=== PATIENT | male | born 1980 | race Hispanic/Latino ===

== ENCOUNTER 2024-05-02 19:35 | Observation (INO) | payer BC, OTHER ==
[2024-05-02] MEDS ORDERED: ASPIRIN 81 MG CHEWABLE TABLET ONE (20:01)
[2024-05-02] MEDS ORDERED: FAMOTIDINE 20 MG/2 ML VIAL IV ONE (20:01)
[2024-05-02] MEDS ORDERED: NA CHLORIDE 0.9% 1,000 ML ONE (20:02)
[2024-05-02 20:05] LABS: Absolute Eosinophils 0.1 K/uL (0-0.5); Absolute Lymphocytes (CBC) 1.5 K/uL (0.7-4.9); Absolute Monocytes 0.6 K/uL (0.1-1.3); Absolute Neutrophil 4.3 K/uL (1.8-8.0); Basophils % 0.5 % (0-1.3); Eosinophils % 2.2 % (0-4.4); Hematocrit 41.8 % (39.6-49.0); Hemoglobin 14.1 g/dL (13.6-17.9); Lymphocytes % 23.2 % (15.3-44.8); MCH 30.6 pg (27.0-35.0); MCHC 33.7 g/dL (32.0-36.0); MCV 90.8 fL (80-100); MPV 7.2 fL (7.6-11.3); Monocytes % 8.9 % (3.3-12.3); Neutrophils % 65.2 % (41.7-73.7); Platelets 272 thou/uL (152-406); Red Cell Distribution Width 13.6 % (12.1-15.2)
[2024-05-02 20:13] LABS: PT Prothrombin Time 12.5 SECONDS (9.4-12.5); Protime INR 1.12
--- NOTE | 2024-05-02 20:19 | RAD REPORT ---
EXAM: CT brain without contrast HISTORY: DIZZINESS COMPARISON: None TECHNIQUE: Multiple contiguous axial images were obtained and a CT of the brain without contrast. Sag ittal and coronal reformats were performed. One or more of the following dose reduction techniques were used: Automated exposure control, adjust ment of the mA and/or kV according to patient size, and/or iterative reconstruction. FINDINGS: No evidence of hydrocephalus, intracranial hemorrhage, or extra-axial fluid collection. The brain is normal in morphology. No evidence of midline shift or areas of brain edema. The calvarium is intact. The visualized paranasal sinuses and mastoid air cells are essentially clear . IMPRESSION: No evidence of acute intracranial abnormality.
[2024-05-02 20:27] LABS: ALT/SGPT 60 U/L (16-61); AST/SGOT 22 U/L (15-37); Albumin/Globulin Ratio 1.2 (1.1-1.8); Alkaline Phosphatase 115 U/L (45-117); Anion Gap 9.8 mEq/L (5.0-15.0); BUN Blood Urea Nitrogen 16 mg/dL (7-18); Bicarbonate 25 mEq/L (21-32); Bilirubin Total 0.3 mg/dL (0.2-1.0); Globulin 3.3 g/dL (2.3-3.5); Glomerular Filtration Rate 87 ml/min (=/>90); Glucose Level 110 mg/dL (74-106); Magnesium 2.2 mg/dL (1.6-2.4); Potassium 3.8 mEq/L (3.5-5.1); Protein, Total 7.3 g/dL (6.4-8.2); Sodium Level 138 mEq/L (136-145); Troponin High Sensitivity 3.1 pg/mL (<58.9)
[2024-05-02 20:29] LABS: Bilirubin Direct < 0.2 mg/dL (0-0.2); Bilirubin Indirect, Calculated 0.1 mg/dL (0.2-0.8); NT PRO-BNP < 5 pg/mL (<125)
--- NOTE | 2024-05-02 20:35 | EDPHYS ---
Physician Documentation [facility] Name: Justo Doyle Jr Age: 43 yrs Sex: Male : 1980 Arrival Date: 05/02/2024 Time: 19:35 Bed 4 Private MD: ED Physician Ced Sal HPI: 05/02 19:42 This 43 yrs old Male presents to ER via Unassigned with complaints of left mauro shoulder, dizzy. 19:42 The patient or guardian complains of pain, that is acute. The complaints affect the mauro anterior aspect of left shoulder, left bicep, posterior aspect of left shoulder and left tricep. Context: The problem was sustained at home, resulted from unknown cause. Onset: The symptoms/episode began/occurred this morning, today. Treatment prior to arrival includes: no previous treatment. Modifying factors: The symptoms are alleviated by nothing. the symptoms are aggravated by nothing. The patient or guardian reports chest pain that is located primarily in the anterior chest wall, left. The patient presents with dizziness, sense of spinning. Historical: - Allergies: 19:46 No Known Allergies; me1 - Home Meds: 19:46 None [Active]; me1 - PMHx: 19:46 None; me1 - PSHx: 19:46 None; me1 - Immunization history:: Adult Immunizations up to date. - Infectious Disease History:: Denies. - Family history:: not pertinent. - Social history:: Smoking status: Patient denies any tobacco usage or history of. ROS: 19:42 Constitutional: Negative for fever, chills, and weight loss, Eyes: Negative for injury, mauro pain, redness, and discharge, ENT: Negative for injury, pain, and discharge, Neck: Negative for injury, pain, and swelling, Respiratory: Negative for shortness of breath, cough, wheezing, and pleuritic chest pain, Abdomen/GI: Negative for abdominal pain, nausea, vomiting, diarrhea, and constipation, Back: Negative for injury and pain, : Negative for injury, bleeding, discharge, and swelling, MS/Extremity: Negative for injury and deformity, Skin: Negative for injury, rash, and discoloration, Psych: Negative for depression, anxiety, suicide ideation, homicidal ideation, and hallucinations, Allergy/Immunology: Negative for hives, rash, and allergies, Endocrine: Negative for neck swelling, polydipsia, polyuria, polyphagia, and marked weight changes, Hematologic/Lymphatic: Negative for swollen nodes, abnormal bleeding, and unusual bruising, 19:42 Cardiovascular: Positive for chest pain, 19:42 MS/extremity: Positive for pain, of the left arm, Exam: 19:42 Constitutional: This is a well developed, well nourished patient who is awake, alert, mauro and in no acute distress. Head/Face: Normocephalic, atraumatic. Eyes: Pupils equal round and reactive to light, extra-ocular motions intact. Lids and lashes normal. Conjunctiva and sclera are non-icteric and not injected. Cornea within normal limits. Periorbital areas with no swelling, redness, or edema. ENT: Nares patent. No nasal discharge, no septal abnormalities noted. Tympanic membranes are normal and external auditory canals are clear. Oropharynx with no redness, swelling, or masses, exudates, or evidence of obstruction, uvula midline. Mucous membranes moist. Neck: Trachea midline, no thyromegaly or masses palpated, and no cervical lymphadenopathy. Supple, full range of motion without nuchal rigidity, or vertebral point tenderness. No Meningismus. Chest/axilla: Normal chest wall appearance and motion. Nontender with no deformity. No lesions are appreciated. Cardiovascular: Regular rate and rhythm with a normal S1 and S2. No gallops, murmurs, or rubs. Normal PMI, no JVD. No pulse deficits. Respiratory: Lungs have equal breath sounds bilaterally, clear to auscultation and percussion. No rales, rhonchi or wheezes noted. No increased work of breathing, no retractions or nasal flaring. Abdomen/GI: Soft, non-tender, with normal bowel sounds. No distension or tympany. No guarding or rebound. No evidence of tenderness throughout. Back: No spinal tenderness. No costovertebral tenderness. Full range of motion. Skin: Warm, dry with normal turgor. Normal color with no rashes, no lesions, and no evidence of cellulitis. MS/ Extremity: Pulses equal, no cyanosis. Neurovascular intact. Full, normal range of motion. Neuro: Awake and alert, GCS 15, oriented to person, place, time, and situation. Cranial nerves II-XII grossly intact. Motor strength 5/5 in all extremities. Sensory grossly intact. Cerebellar exam normal. Normal gait. Psych: Awake, alert, with orientation to person, place and time. Behavior, mood, and affect are within normal limits. 19:42 ECG was reviewed by the Attending Physician. 20:09 ECG was reviewed by the Attending Physician. [facility] Vital Signs: 19:44 BP 159 / 100; Pulse 71; Resp 17; Temp 98.8; Pulse Ox 100% ; Weight 90.72 kg; Height 5 me1 ft. 5 in. ; 20:46 BP 148 / 108; Pulse 71; Resp 16; Pulse Ox 97% ; jj7 21:31 BP 140 / 111; Pulse 80; Resp 19; Pulse Ox 98% ; jj7 22:25 BP 129 / 101; Pulse 80; Resp 16; Pulse Ox 98% ; jj7 23:22 BP 132 / 92; Pulse 62; Resp 18; Temp 98.2; Pulse Ox 99% ; Pain 0/10; jj7 19:44 Body Mass Index 33.28 (90.72 kg, 165.1 cm) dc1 23:22 Pain Scale: Adult jj7 MDM: 19:37 Medical Screening Exam initiated [facility] 19:40 Medical Screening Exam initiated [facility] 19:45 Differential diagnosis: contusion, tendonitis, abnormal EKG, acute myocardial mauro infarction, acute pericarditis, anxiety, coronary artery disease chest wall pain, Cholelithiasis costochondritis, esophagitis, gastritis, gastroesophageal reflux disease (GERD), herpes zoster, pancreatitis, peptic ulcer disease, pericarditis, pleurisy, stable angina, thoracic aortic disection, unstable angina. HEART Score: ECG: Non specific repolarization disturbance / LBTB / PM (1). Differential diagnosis: cardiac arrhythmia, CVA, generalized weakness, idiopathic dizziness, near-syncope, sepsis, syncope, TIA, vertigo. The patient was given aspirin in the Emergency Department. TARA Risk Score: TOTAL SCORE = 0. Data reviewed: vital signs, nurses notes, lab test result(s), EKG, radiologic studies, CT scan, plain films. Consideration of Admission/Observation Patient was admitted/placed on observation. Escalation of care including admission/observation considered. I considered the following discharge prescriptions or medication management in the emergency department Antibiotics: At this time antibiotics are not recommended. Independent interpretation of the following test(s) in the Emergency Department EKG: See my EKG interpretation above. Test considered but Not performed: Ultrasound no 2 d echo. 05/02 19:42 Order name: Basic Metabolic Panel; Complete Time: 20:30 [facility] 05/02 19:42 Order name: CBC with Diff; Complete Time: 20:16 [facility] 05/02 19:42 Order name: LFT's; Complete Time: 20:30 [facility] 05/02 19:42 Order name: Magnesium; Complete Time: 20:30 [facility] 05/02 19:42 Order name: NT PRO-BNP; Complete Time: 20:30 [facility] 05/02 19:42 Order name: PT-INR; Complete Time: 20:16 [facility] 05/02 19:42 Order name: Troponin HS; Complete Time: 20:30 [facility] 05/02 20:36 Order name: Lipid Profile [facility] 05/02 21:17 Order name: LDL, Direct [facility] 05/02 21:41 Order name: Basic Metabolic Panel [facility] 05/02 21:41 Order name: CBC with Automated Diff [facility] 05/02 21:41 Order name: Creatine Phosphokinase [facility] 05/02 21:41 Order name: Lactate w/ 2H reflex if indic. [facility] 05/02 21:41 Order name: Magnesium [facility] 05/02 21:41 Order name: NT PRO-BNP [facility] 05/02 21:41 Order name: Phosphorus [facility] 05/02 21:41 Order name: Thyroid Stimulating Hormone [facility] 05/02 21:41 Order name: Urinalysis w/ reflexes [facility] 05/02 21:41 Order name: Troponin High Sensitivity [facility] 05/02 21:41 Order name: Troponin High Sensitivity [facility] 05/02 21:41 Order name: Troponin High Sensitivity [facility] 05/02 21:41 Order name: Troponin High Sensitivity [facility] 05/02 19:42 Order name: XRAY Chest (1 view); Complete Time: 21:25 [facility] 05/02 19:42 Order name: CT Head Brain wo Cont; Complete Time: 20:30 [facility] 05/02 21:42 Order name: Echo with Doppler [facility] 05/02 21:41 Order name: CONS Physician Consult [facility] 05/02 19:42 Order name: Cardiac monitoring; Complete Time: 20:06 [facility] 05/02 19:42 Order name: EKG - Nurse/Tech; Complete Time: 20:06 [facility] 05/02 19:42 Order name: IV Saline Lock; Complete Time: 20: [facility] 05/02 19:42 Order name: Labs collected and sent; Complete Time: 20: [facility] 05/02 19:42 Order name: O2 Per Protocol; Complete Time: : [facility] 05/02 19:42 Order name: O2 Sat Monitoring; Complete Time: 20: [facility] EC: Rate is 81 beats/min. Rhythm is regular. QRS [place] is Normal. [place] interval is normal. QRS mauro interval is normal. QT interval is normal. No Q waves. T waves are Normal. No ST changes noted. Clinical impression: NSR w/ Non-specific ST/T Changes and No evidence of ischemia. Interpreted by me. Reviewed by me. Administered Medications: 20: Drug: Aspirin PO Chewable Tablet 324 mg PO once; 81 mg tablets x 4 Route: PO; jj7 21:33 Follow up: Response: No adverse reaction jj7 20:06 Drug: NS 0.9% IV 1000 ml IV at 1000 ml once; to be given as a bolus over 60 minutes jj7 Route: IV; Rate: 1000 ml; Site: right antecubital; 21:33 Follow up: IV Status: Completed infusion jj7 20:06 Drug: Famotidine IVP 20 mg IVP once; dilute with 10 mL 0.9% NaCl; give over 2 minutes jj7 Route: IVP; Site: right antecubital; 21:33 Follow up: Response: Marked relief of symptoms jj7 21:07 Drug: Lisinopril PO 20 mg PO once Route: PO; jj7 22:28 Follow up: Response: Blood pressure is lowered jj7 21:07 Drug: Metoprolol PO 25 mg PO once Route: PO; jj7 22:27 Follow up: Response: Blood pressure is lowered jj7 Disposition Summary: 05/02/24 20:35 Hospitalization Ordered Notes: Hospitalization Status: Observation mauro Provider: Ca Houston cha Condition: Stable mauro Problem: new mauro Symptoms: have improved mauro Bed/Room Type: Standard mauro Location: Intensive Care Unit(05/02/24 22:09) km Room Assignment: 6-(05/02/24 22:09) km Diagnosis - Chest pain, unspecified mauro - Dizziness and giddiness mauro - Essential (primary) hypertension mauro Forms: - Medication Reconciliation Form mauro - SBAR form mauro - Leadership Thank You Letter [facility] Signatures: Dispatcher [employer] EDCed Ramires MD MD cha Johnson, Juwairiyah RN RN jj7 Deya Small RN RN me1 [facility] Corrections: (The following items were deleted from the chart) 19:43 19:43 Head Brain Wo Cont+CT.RAD.BRZ ordered. EDMS EDMS 20:37 20:37 LIPID PROFILE+C.LAB.BRZ ordered. EDMS EDMS 22:09 20:35 Telemetry/MedSurg (observation) [facility] 22:09 20:35 [facility]
--- NOTE | 2024-05-02 20:35 | ER ---
Nurse's Notes [facility] Name: Justo Doyle Jr Age: 43 yrs Sex: Male : 1980 Arrival Date: 05/02/2024 Time: 19:35 Bed 4 Private MD: Diagnosis: Chest pain, unspecified;Dizziness and giddiness;Essential (primary) hypertension Presentation: 05/02 19:44 Chief complaint: Patient states: left sided shoulder pain that started about lunch time me1 and then this evening sudden onset of dizziness, ringing in both ears and then numbness to BUE. Coronavirus screen: Vaccine status: Patient reports being unvaccinated. Ebola Screen: No symptoms or risks identified at this time. Initial Sepsis Screen: Does the patient meet any 2 criteria? No. Patient's initial sepsis screen is negative. Risk Assessment: Do you want to hurt yourself or someone else? Patient reports no desire to harm self or others. Onset of symptoms was May 02, 2024 at 12:00. 19:44 Method Of Arrival: Wheelchair me1 19:44 Acuity: ADELINA 3 me1 Historical: - Allergies: 19:46 No Known Allergies; me1 - Home Meds: 19:46 None [Active]; me1 - PMHx: 19:46 None; me1 - PSHx: 19:46 None; me1 - Immunization history:: Adult Immunizations up to date. - Infectious Disease History:: Denies. - Family history:: not pertinent. - Social history:: Smoking status: Patient denies any tobacco usage or history of. Screenin:50 [facility] ED Fall Risk Assessment (Adult) History of falling in the last 3 months, jj7 including since admission No falls in past 3 months (0 pts) Confusion or Disorientation No (0 pts) Intoxicated or Sedated No (0 pts) Impaired Gait No (0 pts) Mobility Assist Device Used No (0 pt) Altered Elimination No (0 pt) Score/Fall Risk Level 0 - 2 = Low Risk Oriented to surroundings, Maintained a safe environment, Educated pt \T\ family on fall prevention, incl call for assistance when getting out of bed, Assessed \T\ reinforced patient's understanding of fall precautions. Abuse screen: Denies threats or abuse. Nutritional screening: No deficits noted. Tuberculosis screening: No symptoms or risk factors identified. Assessment: 19:50 General: Appears in no apparent distress. uncomfortable. Pain: Complains of pain in jj7 posterior aspect of left shoulder. Neuro: Reports dizziness. Vital Signs: 19:44 BP 159 / 100; Pulse 71; Resp 17; Temp 98.8; Pulse Ox 100% ; Weight 90.72 kg; Height 5 me1 ft. 5 in. ; 20:46 BP 148 / 108; Pulse 71; Resp 16; Pulse Ox 97% ; jj7 21:31 BP 140 / 111; Pulse 80; Resp 19; Pulse Ox 98% ; jj7 22:25 BP 129 / 101; Pulse 80; Resp 16; Pulse Ox 98% ; jj7 23:22 BP 132 / 92; Pulse 62; Resp 18; Temp 98.2; Pulse Ox 99% ; Pain 0/10; jj7 19:44 Body Mass Index 33.28 (90.72 kg, 165.1 cm) me1 23:22 Pain Scale: Adult [facility] ED Course: 19:36 Patient arrived in ED. mauro 19:37 Ced Sal MD is Attending Physician. [facility] 19:46 Triage completed. me1 19:46 Arm band placed on Patient placed in an exam room. me1 19:50 Patient has correct armband on for positive identification. Bed in low position. Call j7 light in reach. Side rails up X 1. Adult w/ patient. Provided Education on: USE OF CALL [place]. Door closed. Warm blanket given. 19:55 Inserted saline lock: 20 gauge in right antecubital area, using aseptic technique. jj7 Blood collected. Flushed with 10 mL NS. 20:06 Basic Metabolic Panel Sent. jj7 20:06 CBC with Diff Sent. jj7 20:06 LFT's Sent. jj7 20:07 Magnesium Sent. jj7 20:07 NT PRO-BNP Sent. jj7 20:07 PT-INR Sent. jj7 20:07 Troponin HS Sent. jj7 20:16 CT Head Brain wo Cont In Process Unspecified. EDMS 20:34 Ca Houston MD is Hospitalizing Provider. mauro 20:36 XRAY Chest (1 view) In Process Unspecified. EDMS 20:50 Bebe Cali RN is Primary Nurse. jj7 21:07 Lipid Profile Sent. jj7 22:34 Patient admitted, IV remains in place. j7 22:34 No provider procedures requiring assistance completed. jj7 Administered Medications: 20:06 Drug: Aspirin PO Chewable Tablet 324 mg PO once; 81 mg tablets x 4 Route: PO; jj7 21:33 Follow up: Response: No adverse reaction 7 20:06 Drug: NS 0.9% IV 1000 ml IV at 1000 ml once; to be given as a bolus over 60 minutes jj7 Route: IV; Rate: 1000 ml; Site: right antecubital; 21:33 Follow up: IV Status: Completed infusion 7 20:06 Drug: Famotidine IVP 20 mg IVP once; dilute with 10 mL 0.9% NaCl; give over 2 minutes j7 Route: IVP; Site: right antecubital; 21:33 Follow up: Response: Marked relief of symptoms j7 21:07 Drug: Lisinopril PO 20 mg PO once Route: PO; j7 22:28 Follow up: Response: Blood pressure is lowered jj7 21:07 Drug: Metoprolol PO 25 mg PO once Route: PO; jj7 22:27 Follow up: Response: Blood pressure is lowered jj7 Medication: 19:50 VIS not applicable for this client. 7 Outcome: 20:35 Decision to Hospitalize by Provider. mauro 22:34 Admitted to ICU accompanied by nurse, via wheelchair, room 6. OVERFLOW, Report called jj7 to EUGENIA MONZON 22:34 Condition: improved 23:23 Patient left the ED. jj7 Signatures: Dispatcher [employer] Ced Baer MD MD cha Johnson, Juwairiyah RN RN jj7 Deya Small RN RN me1
--- NOTE | 2024-05-02 20:46 | RAD REPORT ---
EXAMINATION: ONE VIEW CHEST XR CLINICAL INDICATION: left shoulder pain;Chest pain TECHNIQUE: Frontal chest projection is submitted. Examination is limited by patient positioning and t echnique. COMPARISON: No prior exam. FINDINGS: Mild nonspecific interstitial prominence. Interstitial pulmonary edema or underlying viral infection/ reactive airway disease or possible. The heart is normal in size. No displaced fractures identified.
[2024-05-02] MEDS ORDERED: METOPROLOL TAR 25 MG TAB ONE (20:53)
[2024-05-02] MEDS ORDERED: lisinopriL 20 MG TAB ONE (20:53)
[2024-05-02 21:14] LABS: HDL Cholesterol 26 mg/dL (40-60)
[2024-05-02] MEDS ORDERED: ONDANSETRON 4 MG (ODT) TAB PO PRN (21:35)
[2024-05-02] MEDS ORDERED: ACETAMINOPHEN 325 MG TABLET PO PRN (21:35)
[2024-05-02 21:37] LABS: LDL, Direct 87 mg/dL (100-129)
--- NOTE | 2024-05-02 21:47 | P.HP ---
Certification for Inpatient Patient admitted to: Observation With expected LOS: <2 Midnights Practitioner: I am a practitioner with admitting privileges, knowledge of patient current condition, hospital course, and medical plan of care. Services: Services provided to patient in accordance with Admission requirements found in Title 42 Section 412.3 of the Code of Federal Regulations Patient History Date of Service: 05/02/24 Reason for admission: chest pain, dizziness History of Present Illness: 43-year-old man with a past medical history significant for GERD presented to the emergency department complaining of chest pain/left shoulder pain and dizziness x 1 day. The patient describes his chest pain as intermiitent, left- sided radiating to the left shoulder, and of a pressure-like quality. Also, the patient states he became dizzy earlier today, and this has not quite resolved yet. Patient has not attempted anything to help improve his chest pain or dizziness. He states nothing worsens his symptoms. The patient denies fever and shortness of breath. Allergies No Known Drug Allergies Allergy (Unverified 03/16/15 14:26) Unknown Home medications list reviewed: Yes (none) - Past Medical/Surgical History -: GERD - Family History Family History: Reviewed- Non-Contributory - Social History Smoking Status: Former smoker (quit 2004) Alcohol use: No Review of Systems Cardiovascular: Chest Pain, Light Headedness Musculoskeletal: Shoulder Pain (left shoulder) Physical Examination - Vital Signs Temperature: 98.8 F Blood Pressure: 140/90 Pulse: 64 Respirations: 18 Pulse Ox (%): 100 - Physical Exam General: Alert, Oriented x3 HEENT: Atraumatic, Normocephalic Neck: JVD not distended Respiratory: Clear to auscultation bilaterally Cardiovascular: Regular rate/rhythm, No gallops, No rubs, No murmurs Gastrointestinal: Normal bowel sounds, Non-distended Musculoskeletal: No swelling, No erythema, No tenderness, No warmth Neurological: Normal strength at 5/5 x4 extr, Sensation intact - Studies Laboratory Data (last 24 hrs) 05/02/24 05/02/24 05/02/24 19:55 19:55 19:55 WBC 6.60 Hgb 14.1 Hct 41.8 Plt Count 272 PT 12.5 INR 1.12 Sodium Potassium BUN Creatinine Glucose Magnesium Total Bilirubin AST ALT Alkaline Phosphatase Triglycerides 580 H Cholesterol 172 LDL Cholesterol Direct 87 L HDL Cholesterol 26 L Cholesterol/HDL Ratio 6.62 05/02/24 19:55 WBC Hgb Hct Plt Count PT INR Sodium 138 Potassium 3.8 BUN 16 Creatinine 1.08 Glucose 110 H Magnesium 2.2 Total Bilirubin 0.3 AST 22 ALT 60 Alkaline Phosphatase 115 Triglycerides Cholesterol LDL Cholesterol Direct HDL Cholesterol Cholesterol/HDL Ratio Assessment and Plan - Problems (Diagnosis) (1) Chest pain Current Visit: Yes Status: Acute - Plan Chest pain: Admit to observation Telemetry ordered Cardiology consult Cardiogram ordered BMP and other labs ordered to trend Continue with aspirin, and statin - Advance Directives Does patient have a Living Will: No Does patient have a Durable POA for Healthcare: No - Code Status/Comfort Care Code Status Assessed: Yes Code Status: Full Code
[2024-05-03 00:05] VITALS: BMI 33.1
[2024-05-03] MEDS: ROSUVASTATIN 10 MG TAB PO SCH (00:11)
[2024-05-03 01:18] LABS: Specific Gravity 1.012 (1.005-1.030); Urine Bilirubin NEGATIVE (Negative); Urine Blood Negative (Negative); Urine Clarity Clear (Clear); Urine Color Colorless (Yellow); Urine Glucose NEGATIVE (Negative); Urine Ketones NEGATIVE (Negative); Urine Microscopic Reflex YN NO UMIC; Urine Nitrite NEGATIVE (Negative); Urine Protein NEGATIVE (Negative); Urine Urobilinogen Normal (Normal)
[2024-05-03 05:35] LABS: Absolute Eosinophils 0.1 K/uL (0-0.5); Absolute Lymphocytes (CBC) 1.7 K/uL (0.7-4.9); Absolute Monocytes 0.6 K/uL (0.1-1.3); Absolute Neutrophil 3.4 K/uL (1.8-8.0); Basophils % 0.8 % (0-1.3); Eosinophils % 2.5 % (0-4.4); Hematocrit 41.2 % (39.6-49.0); Hemoglobin 13.5 g/dL (13.6-17.9); Lymphocytes % 28.7 % (15.3-44.8); MCHC 32.9 g/dL (32.0-36.0); MCV 91.3 fL (80-100); MPV 7.2 fL (7.6-11.3); Monocytes % 10.6 % (3.3-12.3); Neutrophils % 57.4 % (41.7-73.7); Platelets 251 thou/uL (152-406); RBC Red Blood Cell Count 4.51 M/uL (4.33-5.43); Red Cell Distribution Width 13.9 % (12.1-15.2)
[2024-05-03 05:58] LABS: Anion Gap 5.8 mEq/L (5.0-15.0); Magnesium 2.2 mg/dL (1.6-2.4); Phosphorus 3.2 mg/dL (2.5-4.9); Potassium 3.8 mEq/L (3.5-5.1); Thyroid Stimulating Hormone 1.34 uIU/mL (0.358-3.740); Troponin High Sensitivity 4.9 pg/mL (<58.9)
[2024-05-03] MEDS: INFLUENZA VACCINE (for 6+ mo) 0.5 ML DOSE IMVAC ONE (08:00)
[2024-05-03 08:13] VITALS: BP 131/85; TEMP 97.7; O2SAT 100
[2024-05-03] MEDS: ENOXAPARIN 40 MG/0.4 ML SQ SCH (08:29)
--- NOTE | 2024-05-03 10:23 | P.DS ---
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 [facility] does not smoke has some mild intermittent tinnitus triglyceride is also significantly elevated does not take any medication At time of discharge is alert oriented responsive cooperative night scale is normal have any cranial nerve dysfunction or weakness of his extremities patient is able to ambulate scan of the head is negative x-ray negative labs unremarkable troponins negative patient's blood pressure was elevated on admission and normal throughout the course of his stay glyceride was over 500 patient was started on atorvastatin to follow-up with primary care physician advised him to see an ENT physician discharge she was started on atorvastatin and hydrochlorothiazide hypertension Vital Signs/Physical Exam: Temp Pulse Resp BP Pulse Ox 97.7 F 98 H 11 L 131/85 100 05/03/24 08:00 05/03/24 08:00 05/03/24 08:00 05/03/24 08:00 05/03/24 08:00 Laboratory Data at Discharge: WBC 6.00 thou/uL (4.3-10.9) 05/03/24 05:18 Hgb 13.5 g/dL (13.6-17.9) L 05/03/24 05:18 Hct 41.2 % (39.6-49.0) 05/03/24 05:18 Plt Count 251 thou/uL (152-406) 05/03/24 05:18 PT 12.5 SECONDS (9.4-12.5) 05/02/24 19:55 INR 1.12 05/02/24 19:55 Sodium 139 mEq/L (136-145) 05/03/24 05:18 Potassium 3.8 mEq/L (3.5-5.1) 05/03/24 05:18 BUN 13 mg/dL (7-18) 05/03/24 05:18 Creatinine 0.97 mg/dL (0.70-1.30) 05/03/24 05:18 Glucose 99 mg/dL (74-106) 05/03/24 05:18 Phosphorus 3.2 mg/dL (2.5-4.9) 05/03/24 05:18 Magnesium 2.2 mg/dL (1.6-2.4) 05/03/24 05:18 Total Bilirubin 0.3 mg/dL (0.2-1.0) 05/02/24 19:55 AST 22 U/L (15-37) 05/02/24 19:55 ALT 60 U/L (16-61) 05/02/24 19:55 Alkaline Phosphatase 115 U/L (45-117) 05/02/24 19:55 Triglycerides 359 mg/dL (<150) H 05/03/24 09:44 Cholesterol 172 mg/dL (<200) 05/02/24 19:55 LDL Cholesterol Direct 87 mg/dL (100-129) L 05/02/24 19:55 HDL Cholesterol 26 mg/dL (40-60) L 05/02/24 19:55 Cholesterol/HDL Ratio 6.62 05/02/24 19:55 Home Medications: Atorvastatin Calcium 40 mg PO DAILY 30 Days #20 tab 05/03/24 Triamterene/Hydrochlorothiazid [Triamterene-Hctz 37.5-25 mg Cp] 1 each PO DAILY 30 Days #30 tab 05/03/24 New Medications: Atorvastatin Calcium 40 mg PO DAILY 30 Days #20 tab Triamterene/Hydrochlorothiazid [Triamterene-Hctz 37.5-25 mg Cp] 1 each PO DAILY 30 Days #30 tab Physician Discharge Instructions: to F/u with ENT for tinnitus and primary care for hyperlipidemia. low fat diet/ Medicated sent to [facility] for elevated cholesterol Diet: Regular Activity: Ad marissa Followup: Hardy Simon, PAC [Primary Care Provider] -
--- NOTE | 2024-05-04 12:16 | EKG ---
Test Date: 2024-05-02 Test Time: 19:51:51 Commercial Announcer: IDAZ MEASUREMENT RESULTS: Intervals: Rate: 81 NV: 140 QRSD: 88 QT: 368 QTc: 427 [place]: P: 46 NV: 140 QRS: 19 T: 29 INTERPRETIVE STATEMENTS: Normal sinus rhythm Normal ECG No previous ECG available for comparison Electronically Signed On 05-04-24 12:13:35 FIELD [employer] by Kulwinder Ng
== END 2024-05-03 10:30 | disposition home or self-care (01) ==
LOC: ER 19:35 → ERHOLD 21:35 → 3RD-ICU 22:56
PROVIDERS: ADMIT Hospitalist; ATTEND Internal Medicine Sleep Medicine
DX: R07.9 Chest pain, unspecified (principal); R42 Dizziness and giddiness; K21.9 Gastro-esophageal reflux disease without esophagitis; E78.5 Hyperlipidemia, unspecified; H93.19 Tinnitus, unspecified ear; I10 Essential (primary) hypertension
CPT/HCPCS: 96361; 93005; 85025 ×2; 80048 ×2; 36415 ×2; 83721; 83735 ×2; 82550; 84478; 84100; 85610; 80061; 80076; 83605; 84443; 81003; 84484 ×2; 83880 ×2; 70450; 71045; 96374; 99285; J1650; J7030; G0378 ×4

== ENCOUNTER 2024-11-17 11:23 | Emergency (ER) | payer OTHER ==
--- OUTSIDE RECORDS SUMMARY | 2024-11-17 11:26 | XMS REPORT | Continuity of Care Document ---
Author Name Unknown Address [address] [place] [address] [address] [place] [address] Organization [facility] [place] Address [address] [facility] [place] [address] Care Team Providers Care Tractor Expert Name Role Phone DONAL ACEVEDO Attending Clinician BRII Condon Attending Clinician Unavailable EUGENIO JACK Attending Clinician Unavailable Provider, [facility] Attending Clinician Un available Moe Romero MD Attending Clinician [phone] MOE ROMERO Attending Clinician Unavailable Doctor Unassigned, [place] Attending Clinician [facility], [facility] Fam Pob I Attending Clinician Unavailab Celena Lazcano PA-C Attending Clinician [phone] CELENA MURRY Attending Clinician Unavailable Ada Mullen Attending Clinician [phone] ADA LI Attending Clinician Unavailable Payers Payer Name Policy Type Policy Number Effective Date Expirati on Date Source [employer] 2 [id number] 2020 00:00:00 Problems Condition Name Condition Details Condition Category Status Onset Date Resolution Date Last Treatment Date Treating Clinician Comments Source No known active problems No known active problems Disease [facility] Allergies, Adverse Reactions, Alerts Allergy Name Allergy Type Status Severity Reaction(s) Onset Date Inactive Date Treating Clinician Comments Source NO KNOWN ALLERGIE S Drug Class Active [facility] Social History Social Habit Start Date Stop Date Quantity Comments Source Exposure to SARS-CoV-2 (event) Not sure [facility] Tobacco use and exposure 2021-01-10 00:00:00 2021-01-10 00:00:00 Never used [facility] Sex Assigned At 1980 00:00[birth year]00 1980 00:00:00 [facility] Smoking Status Start Date Stop Date Source Never smoker [facility] Medications Ordered Medication Name Filled Medication Name Start Date Stop Date Current Medication? Ordering Clinician Indication Dosage Frequency Signature (SIG) Comments Components Source acetaminoph en-codeine 300-30 mg tablet 01-10 00:00: 00 Yes [id number] 1/2 - 1 tab Every 4hrs as needed for pain or cough requiring narcotic Indication s: acute pain [facility] methylPREDN ISolone (MEDROL, REI,) 4 mg tablets 2019-07 00:00: 00 Yes [id number] Take by mouth SEE-INSTRU CTIONS. follow package directions [facility] azithromyci n (ZITHROMAX Z-REI) 250 mg tablet 2019-07 00:00: 00 Yes [id number] 250mg Take 1 tablet by mouth daily. Take 500 mg day 1, then 250 mg days 2 to 5. [facility] Vital Signs Vital Name Observation Time Observation Value Comments S ource Systolic blood pressure 2021-01-10 17:04:00 135 mm[Hg[facility] Diastolic blood pressure 2021-01-10 17:04:00 88 mm[Hg] [facility] Heart rate 2021-01-10 17:03:00 89 /min [facility] Body temperature 2021-01-10 17:03:00 37.11 Ema [facility] Respiratory rate 2021-01-10 17:03:00 17 /min [facility] Body height 2021-01-10 17:03:00 165.1 cm [facility] Body weight 2021-01-10 17:03:00 87.907 kg [facility] BMI 2021-01-10 17:03:00 32.25 kg/m2 [facility] Oxygen saturation in Arterial blood by Pulse oximetry 2021-01-10 17:03:00 98 /min [facility] Systolic blood pressure 2020-05-12 00:21:00 134 mm[Hg] [facility] Diastolic blood pressure 2020-05-12 00:21:00 88 mm[Hg] [facility] Heart rate 2020-05-12 00:20:00 77 /min [facility] Body temperature 2020-05-12 00:20:00 36.39 Ema [facility] Respiratory rate 2020-05-12 00:20:00 17 /min [facility] Body height 2020-05-12 00:20:00 165.1 cm [facility] Body weight 2020-05-12 00:20:00 86.183 kg [facility] BMI 2020-05-12 00:20:00 31.62 kg/m2 [facility] Oxygen saturation in Arterial blood by Pulse oximetry 2020-05-12 00:20:00 97 /min [facility] Procedures Procedure Date / Time Performed Performing Clinicia n Source POCT GRP A STREP (MOLECULAR) 2021-01-10 17:26:[address] [facility] PATIENT FINANCIAL POLICY 2021-01-10 16:28:20 Doctor Unassigned, [place] [facility] POCT FLU A AND B (MOLECULAR) 2020-05-12 00:35:00 Robert Powell [facility] POCT GRP A STREP (MOLECULAR) 2020-05-11 00:00:00 Robert Powell [facility] Encounters Start Date/Time End Date/Time Encounter Type Admission Type Attending [facility] Care Department Encounter ID Source 2021-02-06 00:00:00 2021-02-06 00:00:00 Outpatient [facility] [id number] [facility] 2021-01-26 13:00:00 2021-01-26 13:00:00 Outpatient BRII PAGE [id number] [facility] 2021-01-18 00:00:00 2021-01-18 00:00:00 Outpatient DONAL ACEVEDO [id number] [facility] 2021-01-13 08:30:00 2021-01-13 08:30:00 Outpatient EUGENIO JACK [id number] [facility] 2021-01-10 11:28:50 2021-01-10 11:48:50 Urgent Care Provider, Juan Pablo Urgent Jaren RomeroMoe Rosa [facility] [address] [id number] [facility] 2021-01-10 11:20:00 2021-01-10 11:20:00 Outpatient Fermin ROMERO [facility] [id number] [facility] 2021-01-10 00:00:00 2021-01-10 00:00:00 Orders Only Doctor Unassigned, [place] [facility] [id number] [facility] 2021-01-05 16:29:47 2021-01-05 16:49:47 Laboratory Only Lab, Adc Fam Pob Neo Murry [facility] [id number] [facility] 2021-01-05 16:00:00 2021-01-05 16:00:00 Outpatient Fermin CARLOS CELENA [facility] [id number] [facility] 2020-05-11 18:03:27 2020-05-11 18:23:27 Urgent Care Provider, Juan Pablo [facility] Care Matti Lissica [facility] [id number] [facility] 2020-05-11 18:20:00 2020-05-11 18:20:00 Outpatient MATTI C[facility]EDESSSICA [facility] [id number] [facility] Results Test Description Test Time Test Comments Results Result Co mments Source [facility]2020-05-12 00:45:00* Test Item Value Reference Range Interpretation Comme nts POCT INFLUENZA A (test code = 3840) negative Negative - Negative POCT INFLUENZA B (test code = 3841) negative Negative - Negative Lab Interpretation (test cod e = [id number]) Normal [facility]2020-05-12 00:40:00* Test Item Value Reference Range Interpretation Comme nts POCT GP A STREP (test code = 09807-6) negative Negative - Negative [facility]
--- NOTE | 2024-11-17 11:40 | ER ---
Nurse's Notes [facility] Name: Justo Doyle Jr Age: 44 yrs Sex: Male : 1980 Arrival Date: 11/17/2024 Time: 11:23 Bed IW1 Private MD: Diagnosis: Chlorine gas exposure, chemical irritants Presentation: 11/17 11:32 Chief complaint: Patient states: Exposed to chlorine gas at work 2-3 hours ago today. ss Pt reports he ran as soon as he smelled the chemical, but has had some irritation to the back of his throat and mild cough. Coronavirus screen: Client denies travel out of the [place] in the last 14 days. Ebola Screen: Patient denies exposure to infectious person. Patient denies travel to an Ebola-affected area in the 21 days before illness onset. Initial Sepsis Screen: Does the patient meet any 2 criteria? No. Patient's initial sepsis screen is negative. Does the patient have a suspected source of infection? No. Patient's initial sepsis screen is negative. Risk Assessment: Do you want to hurt yourself or someone else? Patient reports no desire to harm self or others. Onset of symptoms was November 17, 2024. 11:32 Acuity: ADELINA 4 ss 11:32 Method Of Arrival: Ambulatory Historical: - Allergies: 11:34 No Known Allergies; ss - Home Meds: 11:34 None [Active]; ss - PMHx: 11:34 None; ss - PSHx: 11:34 None; ss - Immunization history:: Adult Immunizations up to date. - Infectious Disease History:: Denies. - Social history:: Smoking status: Patient denies any tobacco usage or history of. Screenin:45 Abuse screen: Denies threats or abuse. Denies injuries from another. Nutritional ss screening: No deficits noted. Tuberculosis screening: Never had TB. Assessment: 11:45 General: Appears in no apparent distress. comfortable, Behavior is calm, cooperative, ss Denies fever, feeling ill, fatigue, chills. Neuro: Level of Consciousness is awake, alert, obeys commands, Oriented to person, place, time, situation. Cardiovascular: Pulses are palpable in right radial artery and left radial artery. Respiratory: Reports cough that is non-productive, Airway is patent Trachea midline Respiratory effort is even, unlabored, Respiratory pattern is regular, symmetrical, Breath sounds are clear bilaterally. Denies shortness of breath. Derm: Skin is intact, is healthy with good turgor, Skin is dry, Skin is pink, warm \T\ dry. normal. Musculoskeletal: Circulation, motion, and sensation intact. Range of motion: intact in all extremities, Swelling absent. Vital Signs: 11:32 BP 156 / 107; Pulse 76; Resp 15; Temp 97(TE); Pulse Ox 99% on R/A; Weight 88.45 kg; ss Height 5 ft. 5 in. ; Pain 07/10; 11:32 Body Mass Index 32.45 (88.45 kg, 165.1 cm) ss 11:32 Pain Scale: Adult ss ED Course: 11:25 Patient arrived in ED. im 11:26 Gregg Knight MD is Attending Physician. sp3 11:34 Triage completed. ss 11:34 Arm band placed on right wrist. ss 11:44 Tawny Hastings RN is Primary Nurse. ss 11:45 Patient has correct armband on for positive identification. ss 11:45 No provider procedures requiring assistance completed. Patient did not have IV access ss during this emergency room visit. Administered Medications: No medications were administered Medication: 11:45 VIS not applicable for this client. ss Outcome: 11:40 Discharge ordered by . 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 Demonstrated understanding of instructions, follow-up care, 11:47 Patient left the ED. ss Signatures: Tawny Hastings RN RN Gregg Knight MD MD sp3 Shante Garcia im
--- NOTE | 2024-11-17 11:40 | EDPHYS ---
Physician Documentation [facility] Name: Justo Doyle Jr Age: 44 yrs Sex: Male : 1980 Arrival Date: 11/17/2024 Time: 11:23 Bed IW1 Private MD: ED Physician Gregg Knight HPI: 11/17 11:37 This 44 yrs old Male presents to ER via Ambulatory with complaints of Chemical sp3 Inhalation. 11:37 44-year-old male with no significant past medical history presents after 3-4 breath sp3 exposure to chlorine leak at local [employer]. Patient immediately sought residential and away from the spittle. Patient complains of cough and throat irritation. No other symptoms. ROS otherwise negative.. Historical: - Allergies: 11:34 No Known Allergies; ss - Home Meds: 11:34 None [Active]; ss - PMHx: 11:34 None; ss - PSHx: 11:34 None; ss - Immunization history:: Adult Immunizations up to date. - Infectious Disease History:: Denies. - Social history:: Smoking status: Patient denies any tobacco usage or history of. ROS: 11:38 Constitutional: Negative for fever, chills, and weight loss, Eyes: Negative for injury, sp3 pain, redness, and discharge, ENT: Negative for injury, pain, and discharge, Neck: Negative for injury, pain, and swelling, Cardiovascular: Negative for chest pain, palpitations, and edema, Abdomen/GI: Negative for abdominal pain, nausea, vomiting, diarrhea, and constipation, Back: Negative for injury and pain, MS/Extremity: Negative for injury and deformity, Skin: Negative for injury, rash, and discoloration, Neuro: Negative for headache, weakness, numbness, tingling, and seizure, Psych: Negative for depression, anxiety, suicide ideation, homicidal ideation, and hallucinations, Allergy/Immunology: Negative for hives, rash, and allergies, Endocrine: Negative for neck swelling, polydipsia, polyuria, polyphagia, and marked weight changes, Hematologic/Lymphatic: Negative for swollen nodes, abnormal bleeding, and unusual bruising, 11:38 All other systems are negative, Exam: 11:38 Constitutional: This is a well developed, well nourished patient who is awake, alert, sp3 and in no acute distress. Head/Face: Normocephalic, atraumatic. Eyes: Pupils equal round and reactive to light, extra-ocular motions intact. Lids and lashes normal. Conjunctiva and sclera are non-icteric and not injected. Cornea within normal limits. Periorbital areas with no swelling, redness, or edema. Neck: Trachea midline, no thyromegaly or masses palpated, and no cervical lymphadenopathy. Supple, full range of motion without nuchal rigidity, or vertebral point tenderness. No Meningismus. Chest/axilla: Normal chest wall appearance and motion. Nontender with no deformity. No lesions are appreciated. Cardiovascular: Regular rate and rhythm with a normal S1 and S2. No gallops, murmurs, or rubs. Normal PMI, no JVD. No pulse deficits. Abdomen/GI: Soft, non-tender, with normal bowel sounds. No distension or tympany. No guarding or rebound. No evidence of tenderness throughout. Back: No spinal tenderness. No costovertebral tenderness. Full range of motion. Skin: Warm, dry with normal turgor. Normal color with no rashes, no lesions, and no evidence of cellulitis. MS/ Extremity: Pulses equal, no cyanosis. Neurovascular intact. Full, normal range of motion. Neuro: Awake and alert, GCS 15, oriented to person, place, time, and situation. Cranial nerves II-XII grossly intact. Motor strength 5/5 in all extremities. Sensory grossly intact. Cerebellar exam normal. Normal gait. Psych: Awake, alert, with orientation to person, place and time. Behavior, mood, and affect are within normal limits. 11:38 Respiratory: Active cough noted. Nonproductive. Breath sounds clear., Vital Signs: 11:32 BP 156 / 107; Pulse 76; Resp 15; Temp 97(TE); Pulse Ox 99% on R/A; Weight 88.45 kg; ss Height 5 ft. 5 in. ; Pain 07/10; 11:32 Body Mass Index 32.45 (88.45 kg, 165.1 cm) ss 11:32 Pain Scale: Adult ss MDM: 11:33 Medical Screening Exam initiated sp3 11:39 Data reviewed: vital signs, nurses notes. ED course: 44-year-old male with chlorine gas sp3 exposure. Only mild symptoms noted. Pulse oxygenation at 99% on room air. Patient in no acute distress and we will give precautions and safe to discharge patient home. Patient will need to be on leave for at least 48 hours.. Administered Medications: No medications were administered Disposition Summary: 11/17/24 11:40 Discharge Ordered Notes: Location: Home sp3 Condition: Stable sp3 Diagnosis - Chlorine gas exposure, chemical irritants sp3 Followup: sp3 - With: Private Physician - When: Upon discharge from the Emergency Department - Reason: Continuance of care Discharge Instructions: - Discharge Summary Sheet ss - Chemical Inhalation Injury, Adult sp3 Forms: - Work release form ss - Medication Reconciliation Form sp3 - Antibiotic Education sp3 - Prescription Opioid Use sp3 - Patient Portal Instructions sp3 - Leadership Thank You Letter sp3 Signatures: Tawny Hastings RN RN Gregg Knight MD MD sp3
[2024-11-17 12:07] VITALS: BP 156/107; TEMP 97; O2SAT 99
== END 2024-11-17 11:47 | disposition home or self-care (01) ==
LOC: ER 11:23
DX: T59.4X1A Toxic effect of chlorine gas, accidental (unintentional), initial encounter (principal); R05.9 Cough, unspecified
CPT/HCPCS: 99282